=== PATIENT | male | born 1975 | race Caucasian/White ===

== ENCOUNTER → 2020-11-28 07:01 | Outpatient (CLI) | payer OTHER, SELFPAY ==
[2020-11-28 07:48] LABS: COVID19 -Nasal RAPID Negative (Negative)
--- NOTE | 2020-12-02 13:20 | PM.PFT.1 ---
Pulmonary Function Test Referral & Results Date Patient Seen: 11/28/20 Requesting provider: Franky Gould Indication: Asthma Results: The spirometry demonstrates an FVC of 4.83 L which is 103% of predicted. The FEV1 was measured at 4.03 L which is 108% of predicted. The FEV1/FVC ratio was 83 which is 105% of predicted. Lung volumes show an SVC of 4.92 L which is 107% of predicted. The diffusing capacity was measured at 29.69 which is 104% of predicted. The maximum voluntary ventilation was normal Interpretation: This study demonstrates normal pulmonary function
== END ==
PROVIDERS: PCP Family Medicine; Referring Provider Family Medicine; Visit Provider Family Medicine
DX: J45.909 Unspecified asthma, uncomplicated (principal); Z20.822 Contact with and (suspected) exposure to COVID-19; Z87.891 Personal history of nicotine dependence
CPT/HCPCS: 87635; 94010; 94726; 94729; C9803

== ENCOUNTER → 2022-10-09 09:02 | Outpatient (CLI) | payer OTHER, SELFPAY ==
--- NOTE | 2022-10-09 | DI.ECHO.S_ITS ---
[facility]---------+ [facility] +---------+ : : [address] : [place] : : : : [id number] : : : : Phone: [phone]---------+ Echocardiogram Report + + :Name: MYNOR PORRAS Study Date: 10/09/2022 Height: 67 in : :[facility] ReadingLocation: Weight: 165 lb : : Gender: Male BSA: 1.9 m2 : :: 1975 Age: 47 yrs BP: 125/89 mmHg: :Reason For Study: FATIGUE, HYPERTENSION : :Ordering Physician: BRIDGER, : :NADYA Parker Performed By: Rachele Guzmán : :Referring: NADYA SPARKS : + + Interpretation Summary The left ventricle is normal in size and wall thickness. The ejection fraction is estimated to be 55-60%. The right ventricle is normal in size and function. There is borderline mitral valve prolapse. There is mild mitral regurgitation. The IVC is of normal diameter and collapses greater than 50% with a sniff. This suggests a low right atrial pressure of 3 mm Hg. Procedure: A two-dimensional transthoracic echocardiogram with color flow and Doppler was performed. The study quality was technically adequate. There is no prior echocardiogram noted for this patient. The patient was in sinus rhythm with heart rates between 63-70 bpm during the exam. Left Ventricle: The left ventricle is normal in size and wall thickness. There is no thrombus. The ejection fraction is estimated to be 55-60%. Septal motion is consistent with conduction abnormality. Diastolic parameters suggest probable normal left ventricular diastolic function and normal filling pressures. Right Ventricle: The right ventricle is normal in size and function. Atria: The left atrial size is normal. Right atrial size is normal. There is no Doppler evidence for an interatrial shunt. Mitral Valve: There is borderline mitral valve prolapse. There is prolapse of the anterior mitral valve leaflet. There is prolapse of the posterior mitral valve leaflet(s). There is mild mitral regurgitation. Aortic Valve: The aortic valve is trileaflet. The aortic valve opens well. There is no aortic valve stenosis. No aortic regurgitation is present. Tricuspid Valve: The tricuspid valve is normal in structure and function. There is trace tricuspid regurgitation. Pulmonary artery pressures cannot be estimated because of the lack of a measurable TR jet velocity. Pulmonic Valve: The pulmonic valve leaflets are thin and pliable; valve motion is normal. There is a trace or physiologic amount of pulmonic regurgitation. Great Vessels: The aortic root is normal size. The dimensions of the ascending aorta are normal. The IVC is of normal diameter and collapses greater than 50% with a sniff. This suggests a low right atrial pressure of 3 mm Hg. Pericardium/ Pleura There is no pericardial effusion. There is no pleural effusion. MMode/2D Measurements & Calculations LVIDd: 5.1 cm LVOT diam: 2.6 cm LVIDs: 3.1 cm Ao root diam: 3.7 cm FS: 39.9 % asc Aorta Diam: 3.2 cm EPSS: 0.27 cm Ao Arch Diam (Prox Trans): 2.5 cm IVSd: 0.94 cm LVPWd: 0.78 cm LV harp. diameter/BSA (cm/m^2): 2.7 LV sys. diameter/BSA (cm/m^2): 1.6 LA A2 area: 18.5 cm2 RA long axis: 5.1 cm LA A4 area: 16.5 cm2 RA area: 17.8 cm2 LA length (vol): 4.7 cm RA vol: 52.2 ml LA vol: 55.7 ml RA : 28.0 ml/m2 LA vol index: 29.9 ml/m2 IVC diam: 0.93 cm RVD1 (basal): 4.0 cm RVD2 (mid): 3.3 cm TAPSE: 2.1 cm Doppler Measurements & Calculations Ao V2 max: 101.5 cm/sec LVOT Max Tim: 70.7 cm/sec Ao V2 mean: 68.4 cm/sec LV V1 max P.0 mmHg Ao max P.1 mmHg LV V1 VTI: 16.4 cm Ao mean P.1 mmHg SHAR(I,D): 3.8 cm2 Ao V2 VTI: 22.9 cm SHAR(V,D): 3.7 cm2 sev ratio: 0.72 SHAR indexed to BSA (cm^2/m^2): 2.1 MV E max tim: 82.8 cm/sec PA V2 max: 76.3 cm/sec MV A max tim: 57.0 cm/sec PA V2 mean: 51.6 cm/sec MV E/A: 1.5 PA mean P.2 mmHg Med Peak E' Tim: 9.4 cm/sec PA pr(Accel): 24.2 mmHg E/E' med: 8.8 Lat Peak E' Tim: 11.0 cm/sec E/E' lat: 7.5 E/e' average: 8.2 MV dec time: 0.26 sec [facility] 88.2 ml Reading Physician:12:02 PM
== END ==
PROVIDERS: PCP Family Medicine; Referring Provider Family Medicine; Visit Provider Family Medicine
DX: I34.0 Nonrheumatic mitral (valve) insufficiency (principal); R53.83 Other fatigue; I10 Essential (primary) hypertension
CPT/HCPCS: 93306

== ENCOUNTER → 2022-10-15 07:41 | Outpatient (CLI) | payer OTHER, SELFPAY ==
--- NOTE | 2022-10-15 | DI.NM.S_ITS ---
PROCEDURE: NM EXERCISE TREADMILL NON NUC COMPARISON: None INDICATIONS: Essential (primary) hypertension FINDINGS: Rest ECG sinus rhythm. Oscar protocol 12:22, maximum heart rate 169 bpm (98% peak predicted, maximum blood pressure 176/90, 12.8 METS, ERIN -10%. Exercise ECG sinus tachycardia, no ST segment changes or arrhythmias. The patient did not complain of exercise-induced chest pain. IMPRESSION: Low risk study. No evidence of exercise-induced ischemia or arrhythmia. Normal hemodynamic response. Good exercise capacity. Dictated by: Tete Soria D.O. on 10/15/2022 at 16:36 Approved by: Tete Soria D.O. on 10/15/2022 at 16:38
== END ==
PROVIDERS: PCP Family Medicine; Referring Provider Family Medicine; Visit Provider Family Medicine
DX: R53.83 Other fatigue (principal); I10 Essential (primary) hypertension
CPT/HCPCS: 93017

== ENCOUNTER → 2023-05-13 11:48 | Outpatient (CLI) | payer OTHER, SELFPAY ==
--- NOTE | 2023-05-13 | DI.RAD.S_ITS ---
PROCEDURE: XR SHOULDER LT MIN 2V INDICATIONS: PAIN IN SHOULDER TECHNIQUE: 3 views of the shoulder were acquired. COMPARISON: None. FINDINGS: Bones: No fractures or dislocations. No suspicious bony lesions. Visualized ribs appear intact. No degenerative change. Soft tissues: No suspicious soft tissue calcifications. IMPRESSION: No acute bony abnormality. Dictated by: Patricio Norwood M.D. on 05/13/2023 at 13:12 Approved by: Patricio Norwood M.D. on 05/13/2023 at 13:13
== END ==
PROVIDERS: PCP Family Medicine; Referring Provider Family Medicine; Visit Provider Family Medicine
DX: M25.512 Pain in left shoulder (principal)
CPT/HCPCS: 73030

== ENCOUNTER → 2023-06-03 18:26 | Outpatient (CLI) | payer OTHER, SELFPAY ==
--- NOTE | 2023-06-03 | DI.MRI.S_ITS ---
PROCEDURE: MR SHOULDER LT WO CON INDICATIONS: Bursitis of left shoulder TECHNIQUE: Noncontrast oblique coronal T2 fast spin echo with fat saturation, oblique sagittal T1 spin echo and T2 fast spin echo with fat saturation, axial T1 spin echo and T2 fast spin echo with fat saturation through the shoulder. COMPARISON: [facility], CR, XR SHOULDER LT MIN 2V, 05/13/2023, 12:01. FINDINGS: Image quality: There are motion artifacts. Rotator cuff: There is mild supraspinatus, infraspinatus and subscapularis tendinosis. No high-grade tendon tear. Sagittal images demonstrate rotator cuff muscle atrophy. Bones and bursae: No bone marrow contusions or fractures. Moderate acromioclavicular and glenohumeral joint degeneration. The acromion demonstrates conventional anatomy, without an os acromiale. Trace subcoracoid bursal fluid is present, suggesting mild bursitis. Capsule and soft tissues: Mild degenerative fraying of the superior labrum. The long head of the biceps tendon demonstrates normal location and morphology. The rotator interval appears normal, without fibrosis. The coracohumeral ligament is normal in thickness. IMPRESSION: 1. Mild rotator cuff tendinosis. No high-grade tendon tear. No rotator cuff muscle atrophy. 2. Moderate acromioclavicular and glenohumeral joint degeneration. 3. Mild subcoracoid bursitis. 4. Mild degenerative fraying of the superior labrum. 5. Limited examination due to motion artifacts. Dictated by: Anitha Ambrosio M.D. on 06/04/2023 at 9:00 Approved by: Anitha Ambrosio M.D. on 06/04/2023 at 9:05
== END ==
PROVIDERS: PCP Family Medicine; Referring Provider Orthopaedic Surgery; Visit Provider Orthopaedic Surgery
DX: M75.52 Bursitis of left shoulder (principal); M19.012 Primary osteoarthritis, left shoulder
CPT/HCPCS: 73221